=== PATIENT | male | born 1970 | race Caucasian/White ===

== ENCOUNTER 2017-04-22 09:51 | Emergency (ER) | payer BC ==
[2017-04-22 10:02] VITALS: BP 160/95
[2017-04-22 10:09] LABS: Urine Bilirubin Negative (NEGATIVE); Urine Ketone Negative (NEGATIVE); Urine Nitrite Negative (NEGATIVE); Urine Protein 15 mg/dL (NEGATIVE); Urine Specific Gravity >=1.030 SP.GR. (1.005-1.030); Urine Urobilinogen Normal (NORMAL)
[2017-04-22 10:21] LABS: Urine Appearance Slightly Cloudy; Urine Blood 10 /ul (NEGATIVE); Urine Color Yellow
[2017-04-22 10:22] LABS: Urine Bacteria None Seen; Urine RBC None Seen /hpf (0-5); Urine WBC 0-5 /hpf (0-5)
--- NOTE | 2017-04-22 10:35 | ERNOTE ---
ER Male HPI Date of Service: 04/22/17 Stated Complaint: UTI ER Male: dysuria Time Seen by Provider: 04/22/17 10:09 Source: patient, RN notes reviewed Exam Limitations: no limitations Immunizations: IMMUNIZATION HX Immunizations Up to Date Yes History of Influenza Vaccine No Hx Pneumococcal Vaccination No Allergies/Adverse Reactions: Allergies No Known Allergies Allergy (Verified 04/22/17 10:01) Home Medications: HOME MEDICATIONS Citalopram Hydrobromide [Citalopram HBr] 20 mg PO DAILY 04/22/17 [Last Taken Unknown] Phenazopyridine HCl 200 mg PO Q8H PRN #6 tablet 04/22/17 [Last Taken Unknown] - History of Present Illness Narrative: 46 y/o male ambulatory to the ED for dysuria that began this morning. He also reports urinary frequency. His recently had a UTI. He believes he may have caught this from her. He had a similar episode in the remote past that he reports was a UTI. Date (Duration): 04/22/17 Timing: Present: constant Onset Location: Present: urethral Radiation: Present: none Prior Abdominal Problems: Present: none Sexual [place] History: Present: single partner Associated Symptoms: Present: dysuria, urinary frequency. Absent: fever/chills , diaphoresis, nausea, vomiting, abdominal pain, loss of bladder control, low back pain, mass, nocturia Prior Treatment: Absent: recently seen, currently on antibiotics Review of Systems - Review of Systems Constitutional: Absent: fever, chills, malaise EYE: Present: no symptoms reported ENT: Present: no symptoms reported Respiratory: Present: no symptoms reported Cardiology: Present: no symptoms reported Gastrointestinal/Abdominal: Absent: nausea, vomiting, abdominal pain Genitourinary: Present: frequency, pain, dysuria. Absent: hematuria, decreased urinary output, discharge Musculoskeletal: Absent: back pain, muscle pain Skin: Absent: rash, lesions Neurological: Absent: headache, dizziness/light-headedness, weakness Endocrine: Present: no symptoms reported Hematologic/Lymphatic: Present: no symptoms reported Psych: Present: anxiety - Patient's Past Medical History Patient History - Medical: Anxiety, GERD Patient History - Cardiac/Respiratory: No pertinent hx Patient History - Cancer: No Hx of Cancer Patient History - Surgical Procedures: No surgical history Patient History - Other: None - Social History Living Situations: home Abuse History: No History of abuse Psych History: Hx of Anxiety, Current tx/ever been on anti-depressants or anti- anxiety meds Smoking Status: Never smoker Alcohol Use: occasionally Drug Use: none - Immunizations Immunizations Up to Date: Yes Hx Pneumococcal Vaccination: No History of Influenza Vaccine: No Physical Exam - Physical Exam General Appearance: Present: wd/wn, alert, no apparent distress Respiratory: Present: no respiratory distress, normal breath sounds, no accessory muscle use, lungs clear Cardiovascular/Chest: Present: regular rate, rhythm, no murmur Gastrointestinal/Abdominal: Present: nontender, nondistended, soft Male Genitals Exam: Present: deferred Back Exam: Present: normal inspection, no CVA tenderness Extremity Exam: Present: normal inspection, normal range of motion, no edema Neurological Exam: Present: alert, oriented, normal mood/affect, no motor/ sensory deficits Skin Exam: Present: normal color, warm/dry ED Progress - Results and Orders Patient's Lab Results:: I have reviewed the patient's lab results. - Vital Signs Patient's Vital Signs:: I have reviewed the patient's vital signs. Vital Signs: Vital Signs 04/22/17 09:58 Temperature 36.1 C L Pulse Rate 60 Respiratory 16 Rate Blood Pressure 160/95 O2 Sat by Pulse 100 Oximetry - Progress/Reassessment Chief Complaint: Genitourinary Problem Progress:: Unchanged Plan - Plan Plan: UA was unremarkable aside from a small amount of blood. Culture ordered. Also ordered GC and chlamydia on urine sample. Will treat dysuria with pyridium pending test results. Departure Clinical Impression: Dysuria - Departure Disposition: Home Follow Up Needed Condition: Stable Instructions: Dysuria Additional Instructions: Drink plenty of water Your test results will take 2 or 3 days - you will be contacted if they are abnormal Follow up with your doctor or urology if symptoms continue Referrals: Gonzales Davila DO [Primary Care Provider] - Prescriptions: Phenazopyridine HCl 200 mg PO Q8H PRN #6 tablet PRN Reason: Pain
== END 2017-04-22 10:38 | disposition home or self-care (01) ==
LOC: ER 09:51
DX: R30.0 Dysuria (principal)